=== PATIENT | male | born 1995 | race Caucasian/White ===

== ENCOUNTER 2024-10-13 10:45 | Outpatient (CLI) | payer OTHER ==
[2024-10-13 11:22] LABS: Hematocrit 42.8 % (42.0-52.0); Hemoglobin 15.4 g/dL (14.0-18.0); Mean Corpuscular Hemoglobin 29.5 pg (27.0-31.0); Mean Corpuscular Volume 82.0 fL (78.0-98.0); Platelet Count 187 10x3/uL (130-400); Red Blood Cell (RBC) Count 5.22 mill/uL (4.70-6.10); White Blood Cell (WBC) Count 5.33 10x3/uL (4.8-10.8)
== END 2024-10-13 10:46 | disposition home or self-care (01) ==
LOC: LABBT 10:45
PROVIDERS: ATTEND Orthopaedic Surgery
DX: Z01.812 Encounter for preprocedural laboratory examination (principal); D16.9 Benign neoplasm of bone and articular cartilage, unspecified
CPT/HCPCS: 85027